=== PATIENT | female | born 1980 | race Caucasian/White ===

== ENCOUNTER 2022-09-08 10:27 | Inpatient (IN) | payer MEDICAID ==
[~2022-09-08] VITALS: Ht 157.5 cm; Wt 47.6 kg
[2022-09-08] MEDS ORDERED: IV NS 0.9% 1,000 ML BAG IV ONE (11:00)
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
--- NOTE | 2022-09-08 11:41 | NUR ---
BLOOD DRAWN AND SENT TO LAB
[2022-09-08 12:02] LABS: HEMATOCRIT 30 % (33-45); HEMOGLOBIN 10.1 g/dL (11.5-14.8); LYMPHOCYTES # (AUTO) 0.6 K/uL (0.8-4.8); LYMPHOCYTES % (AUTO) 8.2 % (20.0-44.0); MEAN CORPUSCULAR HGB CONC 34 g/dl (31.0-36.0); MEAN CORPUSCULAR VOLUME 86 fL (82-100); MONOCYTES # (AUTO) 0.4 K/uL (0.1-1.30); MONOCYTES % (AUTO) 6.3 % (2.0-12.0); NEUTROPHILS % (AUTO) 85.5 % (43.0-81.0); PLATELET COUNT (AUTO) 249 K/uL (150-450); RED BLOOD CELL COUNT(AUTO) 3.43 MIL/uL (4.0-5.2)
[2022-09-08 12:26] LABS: ALANINE AMINOTRANSFERASE 110 U/L (12-78); ALBUMIN 2.4 g/dL (3.4-5.0); ALKALINE PHOSPHATASE 70 U/L (46-116); ASPARTATE AMINOTRANSFERASE 123 U/L (15-37); BILIRUBIN,DIRECT 0.4 mg/dL (0.0-0.2); BILIRUBIN,TOTAL 0.9 mg/dL (0.2-1.0); CALCIUM, SERUM 8.4 mg/dL (8.5-10.1); CARBON DIOXIDE 26 mmol/L (21-32); CHLORIDE 98 mmol/L (98-107); CREATININE 0.7 mg/dL (0.6-1.3); GLUCOSE 101 mg/dL (74-106); POTASSIUM 3.1 mmol/L (3.5-5.1); SODIUM SERUM 131 mmol/L (136-145); UREA NITROGEN, BLOOD 13 mg/dL (7-18)
[2022-09-08 14:08] LABS: BILIRUBIN,URINE SMALL (NEGATIVE); COLOR,URINE ORANGE (YELLOW); LEUKOCYTE ESTERASE ,URINE SMALL (NEGATIVE); NITRITE, URINE POSITIVE (NEGATIVE); PROTEIN,URINE 30 mg/dl (NEGATIVE); UGLUCOSE NEGATIVE (NEGATIVE); UROBILINOGEN,URINE >=8.0 EU/dL (0.2)
[2022-09-08] MEDS ORDERED: VANCOMYCIN 1 GM VIAL ONE (14:13)
[2022-09-08 14:27] LABS: ACETAMINOPHEN < 10 ug/ml (10-30); ALCOHOL, BLOOD < 3 mg/dL (0-0)
[2022-09-08] MEDS ORDERED: VANCOMYCIN 1 GM in IV D5W 250 ML IV ONE (14:30)
--- NOTE | 2022-09-08 14:30 | NUR ---
EPIC HEEL CEMENTER MACHINE PAGED
--- NOTE | 2022-09-08 14:40 | NUR ---
EPIC PEANUT SALTER AND ER MD ON PHONE
--- NOTE | 2022-09-08 14:52 | NUR ---
COVID 19 SWAB SPECIMEN COLLECTED AND SENT TO LAB
[2022-09-08] MEDS ORDERED: MAG HYDROX/AL HYDROX/SIMETH 30 ML UDC PO PRN (15:00)
[2022-09-08] MEDS ORDERED: MAGNESIUM HYDROXIDE 30 ML UDC PO PRN (15:00)
[2022-09-08] MEDS ORDERED: ACETAMINOPHEN 325 MG TABLET PO PRN (15:00)
[2022-09-08] MEDS ORDERED: ONDANSETRON HCL/PF 4 MG/2 ML VIAL IVP PRN (15:00)
[2022-09-08 16:08] LABS: BACTERIA,URINE 2+ /HPF (None Seen); SQUAMOUS EPITHELIAL CELL,UR 0-2 /HPF (None Seen)
--- NOTE | 2022-09-08 18:49 | NUR ---
SPOKE WITH CARLY ZULETA FOR CLIFFORD.
--- NOTE | 2022-09-08 19:33 | NUR ---
wheeled patient via gurney accompanied by RN and emt in no distress. RN at bedside to assume care.
[2022-09-08 19:40] VITALS: BP 110/78
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
[2022-09-08] MEDS: ENOXAPARIN SODIUM 40 MG/0.4 ML DISP.SYRIN SQ SCH (21:14)
[2022-09-08] MEDS: IV NS 0.9% 1,000 ML IV PRN (21:14)
--- NOTE | 2022-09-08 21:30 | NUR ---
POLICE WORKER NOTE PATIENT C/O 06/03 GENERALIZED PAIN AND REQUESTING NORCO. NOTIFIED CREDIT ADMINISTRATION MANAGER MD WITH ORDER FOR PRN NORCO 10-325 MG Q6H. ORDER VERIFIED AND CARRIED OUT
[2022-09-08] MEDS ORDERED: CEFTRIAXONE 1 G VIAL ONE (22:15)
[2022-09-08] MEDS: HYDROCODONE/APAP 10/325MG TABLET PO PRN (22:18)
[2022-09-08] MEDS: CEFTRIAXONE 1 G in IV D5W 50 ML IV SCH (22:19)
[2022-09-08] MEDS: VANCOMYCIN 0.75 GM in IV D5W 250 ML IV SCH (23:21)
[2022-09-09] VITALS: BP 113/60
[2022-09-09 06:11] LABS: BASOPHILS % (AUTO) 0.1 % (0.0-2.0); EOSINOPHILS % (AUTO) 0.6 % (0.0-6.0); HEMATOCRIT 26 % (33-45); HEMOGLOBIN 8.9 g/dL (11.5-14.8); LYMPHOCYTES # (AUTO) 0.7 K/uL (0.8-4.8); LYMPHOCYTES % (AUTO) 18.9 % (20.0-44.0); MEAN CORPUSCULAR HGB CONC 34 g/dl (31.0-36.0); MEAN CORPUSCULAR VOLUME 87 fL (82-100); MONOCYTES # (AUTO) 0.3 K/uL (0.1-1.30); MONOCYTES % (AUTO) 9.5 % (2.0-12.0); NEUTROPHILS # (AUTO) 2.6 K/uL (1.8-8.9); NEUTROPHILS % (AUTO) 70.9 % (43.0-81.0); PLATELET COUNT (AUTO) 209 K/uL (150-450); RED BLOOD CELL COUNT(AUTO) 3.04 MIL/uL (4.0-5.2); WHITE BLOOD COUNT (AUTO) 3.6 K/uL (4.3-11.0)
--- NOTE | 2022-09-09 06:19 | NUR ---
COMPUTER SYSTEMS DESIGNER CLOSING NOTE PATIENT IN BED, ALERT/ORIENTED X 2, PATIENT LABILE. PT HAVING PARANOID DELUSIONS, WITH EPISODES OF YELLING AND CRYING, STATING "HE'S HURTING ME, HE'S DOING WITCH CRAFT ON ME." REASSURED PATIENT THAT SHE'S IN THE HOSPITAL AND THAT SHE'S SAFE BUT PATIENT NOT ABLE TO BE CONSOLED AND PATIENT STILL AFRAID AND SUSPICIOUS. PT STABLE ON RA, NO S/S OF DISTRESS OR SOB NOTED, BREATHING EVEN AND UNLABORED. PATIENT STILL REFUSING EXTERNAL CLINICAL TRIALS ASSISTANT. IV ACCESS ON RIGHT AC #18G INTACT AND INFUSING NS @ 75 ML/HR. PATIENT AMBULATORY TO BATHROOM, STEADY GAIT, PATIENT HAD 1 EPISODE OF DIARRHEA THIS SHIFT. PATIENT NOTED WITH MULTIPLE SCRATCHES, ABRASIONS, SCABS AND LACERATIONS THROUGHOUT BODY, PATIENT REFUSED APPLICATION OF DRESSING ON LACERATIONS, UNABLE TO ASSESS SOME BODY PARTS D/T PATIENT REFUSING TO REMOVE GOWN AND REFUSING TO TURN TO VIEW BACK SIDE. MEDICATIONS GIVEN ORDERED, PT NEEDS MET THROUGHOUT SHIFT. SAFETY MEASURES IN PLACE: CALL LIGHT WITHIN REACH, SIDE RAILS UP X 2, BED LOCKED IN LOWEST POSITION, BED ALARM ON. WILL ENDORSE TO DAYSHIFT NURSE FOR CONTINUITY OF CARE
[2022-09-09 06:22] LABS: CALCIUM, SERUM 7.7 mg/dL (8.5-10.1); CREATININE 0.7 mg/dL (0.6-1.3); MAGNESIUM 1.5 mg/dL (1.8-2.4); PHOSPHORUS 2.1 mg/dL (2.5-4.9); POTASSIUM 3.3 mmol/L (3.5-5.1)
[2022-09-09] MEDS: VANCOMYCIN 0.75 GM in IV D5W 250 ML IV SCH ×5 (06:55→23:49)
[2022-09-09] MEDS: HYDROCODONE/APAP 10/325MG TABLET PO PRN (07:05)
--- NOTE | 2022-09-09 07:25 | NUR ---
ANALYSIS LEAD OPENING NOTES RECEIVED PATIENT AWAKE, RESTING IN BED. PT A/O X2, FORGETFUL. REORIENTED AND REDIRECTED PT NEEDED. ON RA, TOLERATING WELL. NO SOB NOTED. NOT IN ANY SIGNS OF ACUTE DISTRESS NOTED. PT IS ON TELE CARDIAC MONITORING BUT PT REFUSED TO HAVE THE MONITOR ON HER. EXPLAINED RISK AND BENEFITS, STILL STRONGLY REFUSED TO HAVE IT ON. TELE BOX IS WITH THE GENERAL WORKER. IV ACCESS ON RAC #18G, INTACT AND PATENT, WITH NS INFUSING AT 75 ML/HR. SAFETY MEASURE MAINTAINED. BED IN LOWEST AND LOCKED POSITION, SIDE RAILS UP X2, AND CALL LIGHT PLACED WITHIN EASY REACH. WILL CONTINUE TO MONITOR PT.
--- NOTE | 2022-09-09 10:00 | NUR ---
RN NOTE PT'S IV NOT PATENT AND NOT WORKING. UNABLE TO FLUSH. OFFERED PT TO REINSERT IV IN ANOTHER SITE. PT REFUSED AT THIS TIME. MADE PT AWARE THAT SHE HAS IV ANTIBIOTICS AND EXPLAINED RISK AND BENEFITS X3, STILL STRONGLY REFUSED. PT STATED "I DON'T WANT IT RIGHT NOW, DO IT LATER".
[2022-09-09] MEDS: OLANZAPINE 5 MG TABLET PO SCH (11:07)
--- NOTE | 2022-09-09 11:15 | NUR ---
RN NOTE OFFERED PT AGAIN FOR REINSERTION OF IV. PT STILL REFUSED AGAIN AT THIS TIME. REMINDED PT THAT SHE HAS TO HAVE THE IV ANTIBIOTICS FOR HER INFECTION AND EXPLAINED RISK AND BENEFITS X3, STILL STRONGLY REFUSED. PT STATED "NOT RIGHT NOW, I JUST WANT TO REST".
[2022-09-09] MEDS ORDERED: MAGNESIUM OXIDE 400 MG TABLET PO ONE (12:00)
[2022-09-09] MEDS ORDERED: POTASSIUM CL. PREMIX PERIPHER. 50 ML IV SCH (12:00)
[2022-09-09] MEDS ORDERED: K PHOS NEUTRAL 250 MG TABLET PO ONE ×2 (12:00)
[2022-09-09] MEDS ORDERED: Magnesium 1GM/D5W 100ML PREMIX 100 ML IV SCH (12:00)
--- NOTE | 2022-09-09 12:30 | NUR ---
RN NOTE OFFERED PT AGAIN FOR REINSERTION OF IV. PT STILL REFUSED AGAIN AT THIS TIME. REMINDED PT THAT SHE HAS TO HAVE THE IV ANTIBIOTICS FOR HER INFECTION AND EXPLAINED RISK AND BENEFITS X3, STILL STRONGLY REFUSED. PT STATED "YOU'RE BEING ANNOYING WITH THAT AGAIN". CALLED DR. DUMONT AND MADE HER AWARE. PER DR. DUMONT SHE WILL COME TO SEE THE PT.
--- NOTE | 2022-09-09 13:26 | NUR ---
RN NOTE PT WAS SEEN AND EXAMINED BY DR. DUMONT WITH ORDERS FOR MIDLINE. ORDERS CARRIED OUT.
--- NOTE | 2022-09-09 15:10 | NUR ---
RN NOTE OFFERED PT AGAIN FOR REINSERTION OF IV. MADE HER AWARE THAT HER VANCO IV ANTIBIOTIC IS DUE NOW WHICH WAS SCHEDULED AT 1500 FOR HER INFECTION. PT REFUSED FOR HER IV TO BE REINSERTED AND VANCO IV ANTIBIOTICS AT THIS TIME. EXPLAINED RISK AND BENEFITS STILL STRONGLY REFUSED. STILL WAITING FOR DR. CAMPOS TO OFFER AND PLACE MIDLINE ON PT.
[2022-09-09 16:00] VITALS: BP 123/63
--- NOTE | 2022-09-09 17:15 | NUR ---
RN NOTE FOLLOWED UP WITH DR. CAMPOS IN REGARDS TO MIDLINE INSERTION. PER DR. CAMPOS HE WILL BE IN THE UNIT SOON. AWAITING FOR DR. CAMPOS TO OFFER AND PLACE MIDLINE ON PT.
--- NOTE | 2022-09-09 17:50 | NUR ---
RN NOTE PT NOTED WITH A FEVER, WITH TEMP AT 102.1. DR. SOBIA CAMPOS AT PT'S BEDSIDE INSERTING MIDLINE AWARE WITH ORDERS TO DO BLOOD CULTURES. ORDERS CARRIED OUT. TYLENOL 650MG PO ADMINISTERED ORDERED Q6H PRN FOR FEVER. PLACED ICE PACK ON THE PT TO HELP DECREASE THE ELEVATED TEMP. WILL MONITOR AND REASSESS PT.
--- NOTE | 2022-09-09 18:10 | NUR ---
RN NOTE PT REQUESTED FOR THE VANCO ANTIBIOTIC THAT WAS SCHEDULED AT 1500. VANCO IV ADMINISTERED VIA ZOHRA G#18 MIDLINE. MADE PHARMACIST AWARE OF LATE ADMINISTRATION.
--- NOTE | 2022-09-09 18:45 | NUR ---
RN NOTE REASSESSED PT'S TEMP, CURRENTLY AT 99.7. ICE PACK IN PLACE. WILL CONTINUE TO MONITOR PT. Addendum: 09/09/22 at 1847 by MALDONADO MONROY RN ADDENDUM PT'S VITAL SIGNS: BP 118/60, P 98, R 20, SPO2 96%.
[2022-09-09] MEDS: IV NS 0.9% 1,000 ML IV PRN (18:50)
--- NOTE | 2022-09-09 19:21 | NUR ---
DIE CAST OPERATOR CLOSING NOTES PATIENT AWAKE, RESTING IN BED. PT A/O X2, FORGETFUL. ALSO NOTED WITH EPISODES OF TALKING TO SELF AND PARANOID DELUSIONS DURING SHIFT. REORIENTED AND REDIRECTED PT NEEDED. ON RA, TOLERATING WELL. NO SOB NOTED. NOT IN ANY SIGNS OF ACUTE DISTRESS NOTED. PT IS ON TELE CARDIAC MONITORING BUT PT STILL REFUSED TO HAVE THE MONITOR ON HER. EXPLAINED RISK AND BENEFITS, STILL STRONGLY REFUSED TO HAVE IT ON. TELE BOX REMAINS WITH THE DIRECTOR LAW ENFORCEMENT. IV ACCESS IN ZOHRA G#18 MIDLINE, INTACT AND PATENT, WITH NS INFUSING AT 75 ML/HR. ALL NEEDS ATTENDED. KEPT CLEAN AND COMFORTABLE. SAFETY MEASURE MAINTAINED. BED IN LOWEST AND LOCKED POSITION, SIDE RAILS UP X2, AND CALL LIGHT PLACED WITHIN EASY REACH. ENDORSED TO CONSTRUCTION MGR NURSE FOR CLIFFORD.
[2022-09-09 20:00] VITALS: BP 105/50
--- NOTE | 2022-09-09 20:08 | NUR ---
MOLDING MACHINE OPERATOR HELPER OPENING NOTE PATIENT AWAKE IN BED, ALERT/ORIENTED X 2, PT ABLE TO MAKE NEEDS KNOWN. PATIENT STABLE ON RA, NO S/S OF DISTRESS OR SOB NOTED, BREATHING EVEN AND UNLABORED. PATIENT AMBULATED TO BATHROOM. IV ACCESS ON ZOHRA MIDLINE INTACT AND INFUSING NS @ 75 ML/HR. PATIENT CONTINUES TO REFUSE TELE MONITOR. SAFETY MEASURES IN PLACE: CALL LIGHT WITHIN REACH, SIDE RAILS UP X 2, BED LOCKED IN LOWEST POSITION, BED ALARM ON. WILL CONTINUE TO MONITOR PATIENT
[2022-09-09] MEDS: ENOXAPARIN SODIUM 40 MG/0.4 ML DISP.SYRIN SQ SCH (20:46)
[2022-09-09] MEDS: CEFTRIAXONE 1 G in IV D5W 50 ML IV SCH (21:22)
[2022-09-10] VITALS: BP 96/64
[2022-09-10] MEDS: HYDROCODONE/APAP 10/325MG TABLET PO PRN ×2 (05:37→16:51)
--- NOTE | 2022-09-10 06:52 | NUR ---
PRESS TENDER INCENDIARY GRENADE CLOSING NOTE PATIENT SLEEPING IN BED, ALERT/ORIENTED X 2, PT ABLE TO MAKE NEEDS KNOWN, PT NOTED WITH PARANOID DELUSIONS. PATIENT STABLE ON RA, NO S/S OF DISTRESS OR SOB NOTED, BREATHING EVEN AND UNLABORED. IV ACCESS ON ZOHRA MIDLINE INTACT AND INFUSING NS @ 75 ML/HR. PATIENT CONTINUES TO REFUSE TELE MONITOR. MEDICATIONS GIVEN ORDERED, PT NEEDS MET THROUGHOUT SHIFT, NO SIGNIFICANT CHANGES. SAFETY MEASURES IN PLACE: CALL LIGHT WITHIN REACH, SIDE RAILS UP X 2, BED LOCKED IN LOWEST POSITION, BED ALARM ON. WILL ENDORSE TO DAYSHIFT NURSE FOR CONTINUITY OF CARE
--- NOTE | 2022-09-10 07:30 | NUR ---
LIBRARY MEDIA TECHNICIAN OPENING NOTE PATIENT AWAKE IN BED, ALERT/ORIENTED X 2, FORGETFUL AND NOTED PARANOID BEHAVIOR , VERBALLY RESPONSIVE AND ABLE TO MAKE NEEDS KNOWN . PATIENT STABLE ON RA, NO S/S OF DISTRESS OR SOB NOTED, BREATHING EVEN AND UNLABORED. PATIENT AMBULATED TO BATHROOM. IV ACCESS ON ZOHRA MIDLINE INTACT AND INFUSING NS @ 75 ML/HR. PATIENT CONTINUES TO REFUSE TELE MONITOR. SAFETY MEASURES IN PLACE: CALL LIGHT WITHIN REACH, SIDE RAILS UP X 2, BED LOCKED IN LOWEST POSITION, BED ALARM ON. WILL CONTINUE TO MONITOR PATIENT
[2022-09-10] MEDS: VANCOMYCIN 0.75 GM in IV D5W 250 ML IV SCH (07:45)
[2022-09-10 08:00] VITALS: BP 102/60
[2022-09-10 08:17] LABS: CALCIUM, SERUM 7.6 mg/dL (8.5-10.1); CREATININE 0.7 mg/dL (0.6-1.3); POTASSIUM 3.2 mmol/L (3.5-5.1)
[2022-09-10 08:19] LABS: MAGNESIUM 1.2 mg/dL (1.8-2.4)
--- NOTE | 2022-09-10 08:56 | NUR ---
SS consult requested for homelessness. SW will follow up at a later time.
[2022-09-10] MEDS: OLANZAPINE 5 MG TABLET PO SCH (09:34)
[2022-09-10] MEDS: MAGNESIUM OXIDE 400 MG TABLET PO SCH ×2 (09:35→11:36)
[2022-09-10] MEDS ORDERED: POTASSIUM CHLORIDE 20 MEQ TAB.PRT.SR PO SCH (10:00)
--- NOTE | 2022-09-10 10:09 | NUR ---
WOUND CARE CONSULT: PT PRESENTS WITH LEFT ARM OPEN WOUND, MULTIPLE AREAS OF EXCORIATION AND DRY SCABS WELL RAISED AREA TO LEFT LOWER LEG WITH DRY ESCHAR, PRESENT ON ADMISSION. PT REFUSED TO TURN FOR FULL SKIN ASSESSMENT. PT STATES " I AM PARANOID". SURGICAL AND DPM CONSULTS CALLED TO DR JADEN GALAVIZ AND DR CARNEY. RECOMMENDATIONS MADE FOR SKIN PROTECTION. DISCUSSED WITH NURSING STAFF. MD IN AGREEMENT WITH PLAN OF CARE.
[2022-09-10 12:00] VITALS: BP 127/60
[2022-09-10] MEDS ORDERED: MAGNESIUM OXIDE 400 MG TABLET PO ONE (12:00)
[2022-09-10] MEDS ORDERED: POTASSIUM CHLORIDE 20 MEQ TAB.PRT.SR PO ONE (12:00)
--- NOTE | 2022-09-10 14:40 | NUR ---
Hand Decorator Consult SW received a consult request for homelessness. Pt. is a 42 y.o. non- female who was admitted for cellulitis. SW met with pt. at bedside. The pt. appears unkept and is alert and oriented x3. Pt. did not keep eye contact and was cooperative through out assessment. Pt. had a irritable mood and labile affect. The pt. [place] [address] [place] and shared she could stay at her dads home (address: [address] [place] [id number]). Pt. stated she was ambulatory with assistance of a cane. Pt. did not report receiving financial assistance. Pt. stated she was not feeling well, began to cry, and stated she was feeling pain in her arm and leg. Pt. exhibited paranoid delusions aeb (as evidence by) pt. expressed she was scared that someone was going to hurt and torture her. SW validated pt.s feelings and provided reassurance for her safety. RIVER assessed for suicidal and homicidal ideation in which pt. disclosed having suicidal ideation with a plan (pt. stated her plan was to overdose on drugs or shoot herself with a gun). RIVER assessed if pt. had access to guns or drugs in which pt. stated she does not have access to guns but she could get one if she wanted to, pt. stated she had access to drugs. Pt. denied homicidal ideation. Pt. stated she has been dx with schizophrenia, bipolar disorder, and manic depression. Pt. stated she has auditory and visual hallucinations. DC plan: When asked of pt.s plan after discharge, pt stated she would like to go to psychiatric tx or a longterm house. RIVER offered pt. group home options in which pt. was agreeable. RIVER provided pt. with addiction and mental health resources in which pt. accepted them. RIVER spoke to nurse requesting a consult for suicidal ideation and paranoid delusions. RIVER will refer pt. to voluntary psych tx after psych evaluation if pt. is agreeable. SW will wait for psych med recommendations. ADDICTION RESOURCES For Drugs and Alcohol [facility] sober living Referrals For Rehabilitation once sober Address:[address] [place] [address] [facility] Rehabilitation Program [address] [place] [address] Detox/residential [facility] Substance Abuse Helpline ([facility]) Outpatient, residential treatment, recovery support for youth/adults [facility] www.actionfaKriklelycounsTV4 Entertainment [facility] Teen programs for drug/alcohol education and support Cade Lucero [place]. Program for adults, sliding scale provides support and education Jeanie Yapta www.KelDocation.org [place]; Detox/residential treatment programs; transition to sober living [facility] www.cri-help.org [place]; Outpatient and residential treatment programs; transition to sober living [facility] TEL: [phone] [facility] [place] [facility] Recovery Demian Evangelista; Outpatient education and supportive programs for teens and adults [facility] www.[facility].org [place]; Residential treatment and work program for females only Spruce Cowpens www.[facility].[employer] [place]: Outpatient/residential treatment program for teens and young adults [facility] www.[facility].org [facility] Detox, inpatient, outpatient for adults and youth [facility], [facility]. [place]; Outpatient programs and referrals to community residential programs. Alcoholics Anonymous -SFV information and meeting and scheduleswww.aa-intergroup.org Mt-Wvwd-Qflelyy https://al-anon.org/ [place] support groups for family of alcoholics. Marijuana Anonymous www.madistrict6.org -SFV listing of meetings Narcotics Anonymous www.na.org SOBER LIVING RESOURCES [facility] www.soberhouEnCoate.Bon-[employer] [place] [employer] [place] A non-profit agency that provides resources to recovery and sober living homes throughout [place], [place], [facility] Sober Living Homes: A Work in Progress, [facility] Recovery Advocates, [facility] Shu Womens Sober Living Homes: [facility] x [phone], [place] [facility] Sober Living Homes: [facility] Counseling--Outpatient [facility] [address] [facility] [address] (Specializes in in-depth psychotherapy for emotional distress: anxiety, depression, interpersonal conflicts, life transitions, childhood abuse) [facility] [address] [place] [address] (Assist with solving problem marital difficulties, separation & divorce, aging parents, & grief, chronic & terminal illness) [facility] [address] [place] [address] (Deal with loss & grief, anxiety, marital difficulties) Homebound/Mental Health Services [address] [facility], [address] [place] [address] (Provide in-home mental services to people who are incapable of leaving their homes) Organization for Needs of the Elderly Senior Service/Resource Center [address] [facility] [place] [address] [facility] [address] [place] [address] Mental Health Services Lizbet Chacon [address] [place] [address] Services: Outpatient therapy for children, teens, young adults, adults, older adults, and families; Psychiatric services, medication support Psychiatric Outpatient Services [facility] Partial Hospitalization and Intensive Outpatient Program (Managed Care and [place] Only)[address] [facility] [phone] [facility] Partial Hospitalization and Outpatient [address] [place], [place] [phone] [facility] Center [id number] [facility]. [address] [place], [place] [phone] [facility] Partial Hospitalization and Outpatient Sdecbld[address] Celena MontanoCAMBRIDGE, [phone] Crisis and Hotline Telephone Numbers 24-Hour service unless stated Wall Crisis Hotlines: [employer] [facility] Mental Health/Crisis Line........[phone] Suicide Prevention Center (24 Hours).......[phone] Suicide Prevention Crisis Center.......[phone] (24 Hours) Assaults Against Women Hotline.........946.502.4561 (24 Hours -- [facility]) Women and Children Crisis Group Home...........[phone] (24 Hours) Child Abuse Hotline............858.944.3782 [facility] (24 Hours)..........[phone] Alcoholics Anonymous (24 Hours)..........[phone] Cocaine Anonymous (24 Hours)............[phone] Narcotics Anonymous (24 Hours)..........[phone] Krystyna Guzman [facility] [address] [address]
[2022-09-10 16:00] VITALS: BP 106/60
[2022-09-10] MEDS: VANCOMYCIN 1 GM in IV D5W 250ml IV SCH ×2 (16:15→23:28)
--- NOTE | 2022-09-10 16:45 | NUR ---
RN NOTES PATIENT C/O OF PAIN ON THE RIGHT ANKLE AND WITH ORDER OF NORCO GIVEN ORDERED
--- NOTE | 2022-09-10 18:42 | NUR ---
MS RN OPENING NOTE PATIENT AWAKE IN BED, ALERT/ORIENTED X 2, FORGETFUL AND NOTED PARANOID BEHAVIOR , VERBALLY RESPONSIVE AND ABLE TO MAKE NEEDS KNOWN . PATIENT STABLE ON RA, NO S/S OF DISTRESS OR SOB NOTED, BREATHING EVEN AND UNLABORED. ALL DUE MEDS GIVEN , URINE COLLECTED FOR AND RESULTED NEGATVIE . C/O OF PAIN AND DISCOMFORT AND GIVEN WITH NORCO ORDERED AND WITH HELP PATIENT AMBULATED TO BATHROOM. IV ACCESS ON ZOHRA MIDLINE INTACT AND INFUSING NS @ 75 ML/HR. PATIENT CONTINUES TO REFUSE TELE MONITOR. SAFETY MEASURES IN PLACE: CALL LIGHT WITHIN REACH, SIDE RAILS UP X 2, BED LOCKED IN LOWEST POSITION, BED ALARM ON. WILL CONTINUE TO MONITOR PATIENT
--- NOTE | 2022-09-10 19:47 | NUR ---
RN OPENING NOTES RECEIVED PT IN BED, AWAKE, WATCHING TV. AOx2, PARANOID. ON RA AND TOLERATING WELL. NO SOB NOTED. NO S/SX OF RESPIRATORY DISTRESS NOTED. IV ACCESS IN ZOHRA MIDLINE #18G RUNNING NS @ 75 ML/HR. SAFETY PRECAUTIONS IN PLACE: BED IN LOWEST, LOCKED POSITION, SIDERAILS UPx2, AND BRAKES ON. TABLE AND CALL LIGHT WITHIN REACH. ALL NEEDS MET AT THIS TIME.
[2022-09-10 20:00] VITALS: BP 116/63
[2022-09-10] MEDS: IV NS 0.9% 1,000 ML IV PRN (20:04)
[2022-09-10] MEDS: ENOXAPARIN SODIUM 40 MG/0.4 ML DISP.SYRIN SQ SCH (20:14)
[2022-09-10] MEDS: CEFTRIAXONE 1 G in IV D5W 50 ML IV SCH (21:20)
--- NOTE | 2022-09-11 06:57 | NUR ---
RN CLOSING NOTES PT IN BED, AWAKE, WATCHING TV. AOx2, PARANOID. ON RA AND TOLERATING WELL. NO SOB NOTED. NO S/SX OF RESPIRATORY DISTRESS NOTED. IV ACCESS IN ZOHRA MIDLINE #18G RUNNING NS @ 75 ML/HR. ALL NEEDS MET AT THIS TIME. ALL ORDERS CARRIED OUT. PT KEPT CLEAN AND DRY. SAFETY PRECAUTIONS IN PLACE: BED IN LOWEST, LOCKED POSITION, SIDERAILS UPx2, AND BRAKES ON. TABLE AND CALL LIGHT WITHIN REACH. WILL ENDORSE TO ONCOMING SHIFT FOR CLIFFORD.
[2022-09-11 07:01] LABS: BASOPHILS % (AUTO) 0.3 % (0.0-2.0); EOSINOPHILS % (AUTO) 0.7 % (0.0-6.0); HEMATOCRIT 29 % (33-45); HEMOGLOBIN 9.6 g/dL (11.5-14.8); LYMPHOCYTES % (AUTO) 29.3 % (20.0-44.0); MEAN CORPUSCULAR HGB CONC 33 g/dl (31.0-36.0); MEAN CORPUSCULAR VOLUME 88 fL (82-100); MONOCYTES # (AUTO) 0.4 K/uL (0.1-1.30); NEUTROPHILS % (AUTO) 58.7 % (43.0-81.0); PLATELET COUNT (AUTO) 253 K/uL (150-450); RED BLOOD CELL COUNT(AUTO) 3.31 MIL/uL (4.0-5.2); WHITE BLOOD COUNT (AUTO) 3.4 K/uL (4.3-11.0)
[2022-09-11 07:15] LABS: MAGNESIUM 1.6 mg/dL (1.8-2.4); PHOSPHORUS 2.4 mg/dL (2.5-4.9)
[2022-09-11] MEDS: VANCOMYCIN 1 GM in IV D5W 250ml IV SCH ×3 (07:17→22:14)
--- NOTE | 2022-09-11 07:40 | NUR ---
MS RN OPENING NOTE Patient in bed, awake. A/O x 2, forgetful and paranoid with delusions. On room air, breathing evenly and unlabored. No SOB or s/s of distress noted. IV access on ZOHRA midline infusing NS at 75 ml/hr. Safety precautions in place: bed in low, locked position; siderails up x 2; call light within reach. Will continue to monitor.
[2022-09-11 08:00] VITALS: BP 120/75
[2022-09-11 08:22] LABS: CREATININE 0.5 mg/dL (0.6-1.3); POTASSIUM 3.6 mmol/L (3.5-5.1)
[2022-09-11] MEDS: OLANZAPINE 5 MG TABLET PO SCH (08:23)
[2022-09-11] MEDS: HYDROCODONE/APAP 10/325MG TABLET PO PRN ×2 (08:28→22:45)
[2022-09-11] MEDS ORDERED: K PHOS NEUTRAL 250 MG TABLET PO ONE (10:00)
[2022-09-11] MEDS ORDERED: MAGNESIUM OXIDE 400 MG TABLET PO ONE (10:00)
[2022-09-11] MEDS ORDERED: SULF1TAB48 PO (10:53)
--- NOTE | 2022-09-11 11:05 | NUR ---
per psych recommendation spoke with Art from crisis team for eval prior to discharge. He stated to call SS for eval, no need for crises team.
--- NOTE | 2022-09-11 11:12 | NUR ---
per SS pt is possible transfer to [facility]. Pt is agreeable with current plan.
--- NOTE | 2022-09-11 11:18 | NUR ---
DC PLAN: RIVER met with pt. at bedside. The pt. is alert & oriented x 4 and states she is still experiencing paranoid delusions and intermittent SI. RIVER offered pt. to be admitted to a psychiatric hospital on a voluntary basis and pt. is agreeable. RIVER was provided with the following mental health and addiction resources by Kristy HOLMAN yesterday. RIVER faxed clinicals to to [employer] TEL:[phone] fax:[phone] for voluntary psychiatric treatment at [facility] [[address] [place] [id number] FAX:[phone]].
[2022-09-11 11:19] LABS: BAND % (MANUAL) 10 % (0.0-5.0); EOSINOPHILS % (MANUAL) 1 % (0-4); LYMPHOCYTES % (MANUAL) 31 % (16-48); MONOCYTES % (MANUAL) 13 % (0-11.0); NEUTROPHILS % (MANUAL) 45 (42-76)
--- NOTE | 2022-09-11 13:41 | NUR ---
SS Note: Per SCVN requeste SW faxed update COVID test to [employer] TEL:[phone] fax:[phone] for voluntary psychiatric treatment at [facility] [[address] [place] [address] FAX:[phone]]. Per [employer] they are awaiting feedback from nursing lunchroom food service supervisor regarding possible admission. Intake stated "there are a lot of pending admissions today" .SW will follow up as needed.
[2022-09-11 16:00] VITALS: BP 104/56
--- NOTE | 2022-09-11 17:05 | NUR ---
RIVER CALLED [facility] [phone] FOR UPDATE OF POSSIBLE ADMISSION TO [facility]. SW was transferred to nursing lieutenant shift supervisor at [facility] and discussed admission. Per nursing sup they will call back with admitting info. RIVER notified RN, vishnu.
--- NOTE | 2022-09-11 18:58 | NUR ---
MS RN CLOSING NOTE Patient in bed, awake. A/O x 2, forgetful and paranoid with delusions. Stable on room air, breathing evenly and unlabored. No SOB or s/s of distress noted. IV access on ZOHRA midline infusing NS at 75 ml/hr. All prescribed medications are administered. Safety precautions in place: bed in low, locked position; siderails up x 2; call light within reach. Will endorse to next shift any CLIFFORD.
--- NOTE | 2022-09-11 19:02 | NUR ---
RN NOTES: -RECEIVED AWAKE ON BED , LYING COMFORTABLY ON SEMI FOWLERS POSITION, A/OX1-2 WITH PERIODS OF FORGETFULNESS AND PARANOIA,COMMUNICATES WELL, ASK FOR SNACK DURING ENDORSEMENT, GIVEN BY INCOMING RN RIGHT AWAY, NON LABORED BREATHING ON ROOM AIR, ORIENTED TO UNIT AND STAFF, AMBULATORY, ZOHRA MIDLINE INTACT AND PATENT, RN ASKED HER IF WE CAN CONTINUE IVF ON NS AT 75 ML/HR, SHE REQUEST, "LATER ON,NOT NOW, I KEEP COMING BACK AND FORTH IN THE BATHROOM IF ITS ON" , FOR LABS IN THE MORNING, PER MORNING ENDORSEMENT, SHE WAS SUPPOSE TO BE [facility]CHARGE TO [facility], AWAITING FOR ACCEPTANCE, ALL PAPER WORKS SIGNED, AND READY FOR DISCHARGE, CONTINUE HYDRATION TOLERATED. -SAFETY PRECAUTION OBSERVED, -KEPT CALL LIGHT WITHIN EASY REACH. -BED LOW AND LOCKED, SIDE RAILS UP X 2.
--- NOTE | 2022-09-11 19:45 | NUR ---
RN NOTES: SPOKE WITH ROBIN/RN OUTGOING (CHARGE NURSE), PATIENT IS NOT YET ACCEPTED BY [facility], PENDING DISCHARGE FOR TODAY,IT WILL BE TOMORROW. SHE WILL STAY STAY FOR ANOTHER NIGHT, BRITTNEY AWARE.
[2022-09-11 20:00] VITALS: BP 112/65
--- NOTE | 2022-09-11 20:17 | NUR ---
RN NOTES: GIVEN SNACKS, SHE LOVES TO EAT AND DRINK JUICE,.
[2022-09-11] MEDS: ENOXAPARIN SODIUM 40 MG/0.4 ML DISP.SYRIN SQ SCH (20:34)
[2022-09-11] MEDS: CEFTRIAXONE 1 G in IV D5W 50 ML IV SCH (20:40)
[2022-09-11] MEDS: IV NS 0.9% 1,000 ML IV PRN (20:41)
--- NOTE | 2022-09-11 20:42 | NUR ---
RN NOTES: COOPERATIVE TO CARE, GIVEN LOVENOX, IVF RESUMED NS AT 75 ML/HR, DUE IV/ATB GIVEN.
[2022-09-11 22:00] VITALS: BP 112/65
--- NOTE | 2022-09-11 22:45 | NUR ---
RN NOTES: -COMPLAINTS OF GENERALIZED PAIN, GIVEN WARM BLANKET, PLAYED SOFT MUSIC AND DIM LIT, INEFFECTIVE, SHE WANTS HER PAIN MEDICATION, ORAL PAIN MEDS GIVEN PER PATIENT REQUEST.
[2022-09-12] MEDS: HYDROCODONE/APAP 10/325MG TABLET PO PRN ×2 (05:47→16:11)
--- NOTE | 2022-09-12 05:47 | NUR ---
RN NOTES: ULTRASOUND TESTER TOOK HER BLOOD FOR TEST, AFTER THAT SHE WAS COMPLAINING SHE HAS GEBERALIZED PAIN, GIVEN SNACKS, PRN NORCO GIVEN PER PATIENT REQUEST.
[2022-09-12] MEDS: VANCOMYCIN 1 GM in IV D5W 250ml IV SCH (06:02)
[2022-09-12 06:36] LABS: CALCIUM, SERUM 8.3 mg/dL (8.5-10.1); CREATININE 0.5 mg/dL (0.6-1.3); MAGNESIUM 1.7 mg/dL (1.8-2.4); PHOSPHORUS 3.7 mg/dL (2.5-4.9); POTASSIUM 3.7 mmol/L (3.5-5.1)
--- NOTE | 2022-09-12 07:02 | NUR ---
RN NOTES: TYRING TO TAKE A NAP IN BETWEEN, EASILY AWAKEN, NON LABORED BREATHING, IVF CONTINUE FOR HYDRATION, DUE ATB.IV GIVEN, TO F/U ACCEPTANCE IN [facility], ALL PAPER WORKS READY AND PATIENT IS AWARE SHE IS FOR DISCHARGE TODAY.ENDORSED FOR CONTINUITY OF CARE.
--- NOTE | 2022-09-12 07:45 | NUR ---
MS RN OPENING NOTE Patient in bed, awake. A/O x 2, forgetful and paranoid with delusions. On room air, breathing evenly and unlabored. No SOB or s/s of distress noted. IV access on ZOHRA midline infusing NS at 75 ml/hr. Patient denies any pain or discomfort at this time. Safety precautions in place: bed in low, locked position; siderails up x 2; call light within reach. Will continue to monitor.
[2022-09-12 08:00] VITALS: BP 126/79
[2022-09-12] MEDS: OLANZAPINE 5 MG TABLET PO SCH (08:45)
[2022-09-12] MEDS ORDERED: MAGNESIUM OXIDE 400 MG TABLET PO ONE (12:00)
--- NOTE | 2022-09-12 13:00 | NUR ---
RN NOTE Received call from Yanelis from [facility], patient has been accepted at [facility] ini the care of Dr. Lopez. Phone number for report is [phone], patient may be admitted after 1500.
--- NOTE | 2022-09-12 13:51 | NUR ---
RIVER received call from [facility] [phone] [facility]ul[facility] stating that they have arranged ambulance transport with [facility] for a 3:30 pm pecan picker. RIVER notified the pt.'s nurseSol.
--- NOTE | 2022-09-12 14:00 | NUR ---
RN NOTE Called So Katharine Evangelista to give report, no answer. Will try again later. Addendum: 09/12/22 at 1439 by SANDRA DEWEY RN ADD: Called number [phone], goes straight to voicemail. Called number [phone], no answer.
--- NOTE | 2022-09-12 14:15 | NUR ---
RN NOTE Called So Katharine Evangelista to give report, no answer. Will try again later. Addendum: 09/12/22 at 1439 by SANDRA DEWEY RN ADD: Called number [phone], goes straight to voicemail. Called number [phone], no answer.
--- NOTE | 2022-09-12 14:37 | NUR ---
RN NOTE Called So Katharine Evangelista to give report, no answer. Will try again later. Addendum: 09/12/22 at 1439 by SANDRA DEWEY RN ADD: Called number [phone], goes straight to voicemail. Called number [phone], no answer.
--- NOTE | 2022-09-12 15:12 | NUR ---
RN NOTE Called Kiya Evangelista for report, was told that all RNs are in meeting room getting report and was advised to call again after 15 minutes.
--- NOTE | 2022-09-12 15:49 | NUR ---
RN NOTE Report given to CARLY Weller of [facility].
--- NOTE | 2022-09-12 16:35 | NUR ---
DISCHARGE NOTE Received order for discharge. Patient is A/O x 1-2, forgetful with periods of paranoid delusions. Stable on room air, breathing evenly and unlabored. No SOB or s/s of distress noted. Exitcare folder given to EMT. IV access removed, catheter tip intact. Photo of LFA open wound taken yesterday and placed in chart. Dressing change done. Pressure dressing applied. All belongings accounted for. Patient left in stable condition with 2 executive community planning via ambulance.
[2022-09-12] MEDS ORDERED: DOXYCYCLINE HYCLATE (100 MG) 100 MG TABLET PO SCH (21:00)
== END 2022-09-12 16:35 | DRG 383 ==
LOC: ER 10:37 → TELE 18:30 → MED 09-10 13:09
PROVIDERS: ADMIT Nurse Practitioner Acute Care; ATTEND Internal Medicine
PROC: 05H533Z Insertion of Infusion Device into Right Subclavian Vein, Percutaneous Approach (ICD-10-PCS; principal; 2022-09-09)
PROC: B546ZZA Ultrasonography of Right Subclavian Vein, Guidance (ICD-10-PCS; 2022-09-09)
DX: L03.114 Cellulitis of left upper limb (principal); E83.39 Other disorders of phosphorus metabolism; N39.0 Urinary tract infection, site not specified; E87.1 Hypo-osmolality and hyponatremia; E83.42 Hypomagnesemia; E87.6 Hypokalemia; F20.9 Schizophrenia, unspecified; Z59.00 Homelessness unspecified; Z87.891 Personal history of nicotine dependence; Z20.822 Contact with and (suspected) exposure to COVID-19; F15.10 Other stimulant abuse, uncomplicated; B96.20 Unspecified Escherichia coli [E. coli] as the cause of diseases classified elsewhere; R23.4 Changes in skin texture; F31.9 Bipolar disorder, unspecified
CPT/HCPCS: 36415; 71045-TC; 80048-TC; 80061-TC; 80076-TC; 80202-TC; 81001; 83605-TC; 83735-TC; 84100-TC; 84484-TC; 84703-TC; 85025-TC; 85730-TC; 87040-TC; 87086-TC; 87186-TC; 93307-TC; C9803; G0378; G0480; J0696; J1650; J3370; J7030; J7040; J7060